=== PATIENT | male | born 1975 | race African-American/Black ===

== ENCOUNTER 2022-08-22 00:29 | Inpatient (IN) | payer OTHER ==
[2022-08-22] MEDS ORDERED: LACTATED RINGERS SOLUTION 1000 ML INFUS.BAG IV ONE ×2 (00:39→01:59)
[2022-08-22] MEDS ORDERED: PIPERACILLIN/TAZOB 3.375 GM 3.375 GM in DEXTROSE 5%-WATER - 50 ML IVPB ONE (00:44)
[2022-08-22] MEDS ORDERED: VANCOMYCIN 1 GM in D5W (PRE-DOCKED) 1,000 MG/250 ML IVPB ONE (00:44)
[2022-08-22] MEDS ORDERED: PIPERACILLIN/TAZOB 3.375 GM 3.375 GM/50 ML BAG IVPB ONE (01:03)
[2022-08-22] MEDS ORDERED: VANCOMYCIN/WATER FOR INJ (PEG) 1,000 MG/200 ML BAG IVPB ONE (01:03)
[2022-08-22 01:08] LABS: VENOUS BASE EXCESS -0.3 mmol/L (-2-2); VENOUS O2 SATURATION 72.5 % (70-80); VENOUS PCO2 46.8 mmHg (38-52); VENOUS PH 7.356 (7.310-7.410)
[2022-08-22 01:10] LABS: BASO % 0.3 % (0-2.0); EOS % 0.1 % (0-4.5); HEMATOCRIT 28.9 % (35.4-49); MCH 28.4 pg (25.7-33.7); MCHC 31.1 g/dl (32.0-35.9); MEAN CELL VOLUME 91.6 fl (80-96); MEAN PLT VOLUME 6.6 fl (7.5-11.1); MONO % 13.4 % (3.8-10.2); NEUT % 78.2 % (42.8-82.8); PLATELET COUNT 342 10^3/uL (134-434); RBC 3.16 M/mm3 (4.00-5.60); RDW 22.3 % (11.9-15.9); WHITE BLOOD COUNT 11.8 K/mm3 (4.0-10.0)
[2022-08-22 01:19] LABS: INR 1.33 (0.83-1.09); PROTHROMBIN TIME (PATIENT) 15.3 SEC (9.7-13.0)
[2022-08-22 01:22] LABS: ACTIVATED PTT 53.9 SECONDS (25.2-36.5)
[2022-08-22 01:31] LABS: CALCIUM 11.2 mg/dL (8.5-10.1)
[2022-08-22 01:32] LABS: BLOOD UREA NITROGEN 71.8 mg/dL (7-18)
[2022-08-22 01:35] LABS: CREATININE 4.8 mg/dL (0.55-1.3)
[2022-08-22 01:37] LABS: BILIRUBIN,TOTAL 0.4 mg/dL (0.2-1)
[2022-08-22 01:57] LABS: LACTIC ACID 2.7 mmol/L (0.4-2.0)
[2022-08-22 03:38] LABS: ANISOCYTOSIS 1+; MACROCYTOSIS 1+; OVALOCYTE 1+
[2022-08-22 06:41] LABS: BASO % 0.5 % (0-2.0); EOS % 0.1 % (0-4.5); HEMATOCRIT 33.1 % (35.4-49); HEMOGLOBIN 11.1 GM/dL (11.7-16.9); LYMPH % 18.9 % (8-40); MCH 30.6 pg (25.7-33.7); MCHC 33.4 g/dl (32.0-35.9); MEAN CELL VOLUME 91.8 fl (80-96); MEAN PLT VOLUME 8.5 fl (7.5-11.1); MONO % 6.3 % (3.8-10.2); NEUT % 74.2 % (42.8-82.8); PLATELET COUNT 187 10^3/uL (134-434); RBC 3.61 M/mm3 (4.00-5.60); RDW 14.2 % (11.9-15.9); WHITE BLOOD COUNT 7.7 K/mm3 (4.0-10.0)
[2022-08-22] MEDS ORDERED: ALBUTEROL SO4 2.5/IPRATROPIUM 0.5 INH SOL 3 ML VIAL.NEB. NEB PRN (07:59)
[2022-08-22] MEDS: ACETAMINOPHEN 325 MG TABLET (FP) PO PRN ×2 (09:27→23:01)
[2022-08-22] MEDS ORDERED: HEPARIN NA (PORCINE) 5,000 UNITS/ML 1ML VIAL ONE ×2 (09:30→15:08)
[2022-08-22] MEDS ORDERED: PIPERACILLIN/TAZOB 2.25 GM 2.25 GM/50 ML BAG IVPB ONE ×2 (09:31→17:17)
[2022-08-22] MEDS: HEPARIN NA (PORCINE) 5,000 UNITS/ML 1ML VIAL SQ SCH ×3 (09:43→23:02)
[2022-08-22] MEDS: PIPERACILLIN/TAZOB 2.25 GM 2.25 GM in DEXTROSE 5%-WATER - 50 ML IVPB SCH ×2 (09:43→17:23)
[2022-08-22] MEDS: LACTATED RINGERS SOLUTION 1,000 ML/1,000 ML INFUS.BAG IV SCH (09:44)
[2022-08-22] MEDS ORDERED: ASCORBIC ACID 500 MG TABLET (FP) ONE (09:45)
[2022-08-22] MEDS: FAMOTIDINE 40 MG/5 ML ORAL SUSPENSION GT SCH ×2 (09:45→23:03)
[2022-08-22] MEDS ORDERED: FAMOTIDINE 20 MG TABLET ONE (09:45)
[2022-08-22] MEDS ORDERED: HEPARIN NA (PORCINE) 5,000 UNITS/ML 1ML VIAL SQ SCH (10:00)
[2022-08-22] MEDS: PSYLLIUM 5.85 GM PACKET GT SCH (10:15)
[2022-08-22] MEDS: VITAMIN B COMP W-C 1 EA TABLET (NEPHRO-VITE) GT SCH (10:15)
[2022-08-22] MEDS: AMANTADINE HCL 100MG/10 ML UNIT DOSE CUPS GT SCH (10:16)
[2022-08-22] MEDS: ASCORBIC ACID 500 MG/5 ML UNIT DOSE CUP GT SCH (10:16)
[2022-08-22] MEDS ORDERED: ERYTHROMYCIN 0.5% OPHTHALMIC OINTMENT 3.5 GM TUBE OU SCH (12:00)
[2022-08-22] MEDS ORDERED: EPOETIN ALFA-EPBX 2,000 UNIT/ML VIAL IVPUSH SCH (12:00)
[2022-08-22] MEDS ORDERED: ERYTHROMYCIN 0.5% OPHTHALMIC OINTMENT 3.5 GM TUBE ONE (12:11)
[2022-08-22] MEDS: SODIUM CHLORIDE 1 GM TABLET GT SCH ×2 (15:20→23:02)
[2022-08-22 16:35] LABS: BASO % 0.4 % (0-2.0); EOS % 0.5 % (0-4.5); HEMATOCRIT 24.1 % (35.4-49); HEMOGLOBIN 7.6 GM/dL (11.7-16.9); LYMPH % 8.3 % (8-40); MCH 28.5 pg (25.7-33.7); MCHC 31.7 g/dl (32.0-35.9); MEAN CELL VOLUME 90.2 fl (80-96); MEAN PLT VOLUME 6.5 fl (7.5-11.1); MONO % 10.9 % (3.8-10.2); NEUT % 79.9 % (42.8-82.8); PLATELET COUNT 291 10^3/uL (134-434); RBC 2.67 M/mm3 (4.00-5.60); RDW 21.6 % (11.9-15.9); WHITE BLOOD COUNT 9.8 K/mm3 (4.0-10.0)
[2022-08-22 16:50] LABS: ALBUMIN 1.8 g/dl (3.4-5.0)
[2022-08-22 16:54] LABS: BILIRUBIN,TOTAL 0.4 mg/dL (0.2-1)
[2022-08-22 16:55] LABS: TOT PROT 7.3 g/dl (6.4-8.2)
[2022-08-22 17:27] LABS: BLOOD UREA NITROGEN 80.9 mg/dL (7-18); CALCIUM 11.3 mg/dL (8.5-10.1); CREATININE 5.1 mg/dL (0.55-1.3)
[2022-08-22] MEDS: OFLOXACIN 0.3% OPHTHALMIC SOLUTION 5 ML BOTTLE OU SCH (17:46)
[2022-08-22] MEDS ORDERED: PATIENT'S OWN MEDICATION (NON-FORMULARY) (Brivaracetam [Briviact] 100 MG Tablet) GT SCH (22:00)
[2022-08-22] MEDS ORDERED: BRIVARACETAM 10 MG/ML GT SCH (22:00)
[2022-08-22] MEDS: ATORVASTATIN CA 40 MG TABLET (FP) GT SCH (23:02)
[2022-08-23] MEDS: PIPERACILLIN/TAZOB 2.25 GM 2.25 GM in DEXTROSE 5%-WATER - 50 ML IVPB SCH ×4 (01:45→19:38)
[2022-08-23] MEDS: HEPARIN NA (PORCINE) 5,000 UNITS/ML 1ML VIAL SQ SCH ×3 (06:40→22:02)
[2022-08-23] MEDS: LEVOTHYROXINE NA 25 MCG TABLET (FP) PO SCH (06:40)
[2022-08-23] MEDS: SODIUM CHLORIDE 1 GM TABLET GT SCH ×3 (06:40→22:02)
[2022-08-23 11:05] LABS: BASO % 0.5 % (0-2.0); EOS % 1.8 % (0-4.5); HEMOGLOBIN 8.2 GM/dL (11.7-16.9); LYMPH % 10.4 % (8-40); MCH 28.5 pg (25.7-33.7); MCHC 31.5 g/dl (32.0-35.9); MEAN CELL VOLUME 90.4 fl (80-96); MEAN PLT VOLUME 7.1 fl (7.5-11.1); MONO % 13.7 % (3.8-10.2); NEUT % 73.6 % (42.8-82.8); PLATELET COUNT 301 10^3/uL (134-434); RBC 2.88 M/mm3 (4.00-5.60); RDW 21.3 % (11.9-15.9); WHITE BLOOD COUNT 8.7 K/mm3 (4.0-10.0)
[2022-08-23 11:24] LABS: BLOOD UREA NITROGEN 99.2 mg/dL (7-18); CALCIUM 11.7 mg/dL (8.5-10.1)
[2022-08-23 11:25] LABS: MAGNESIUM 3.3 mg/dL (1.8-2.4)
[2022-08-23 11:27] LABS: CREATININE 5.9 mg/dL (0.55-1.3); PHOSPHOROUS 6.1 mg/dL (2.5-4.9)
[2022-08-23] MEDS: AMANTADINE HCL 100MG/10 ML UNIT DOSE CUPS GT SCH (12:35)
[2022-08-23] MEDS: FAMOTIDINE 40 MG/5 ML ORAL SUSPENSION GT SCH ×2 (12:35→22:03)
[2022-08-23] MEDS: ASCORBIC ACID 500 MG/5 ML UNIT DOSE CUP GT SCH (12:35)
[2022-08-23] MEDS: LACTATED RINGERS SOLUTION 1,000 ML/1,000 ML INFUS.BAG IV SCH (12:36)
[2022-08-23] MEDS: VITAMIN B COMP W-C 1 EA TABLET (NEPHRO-VITE) GT SCH (12:36)
[2022-08-23] MEDS: PSYLLIUM 5.85 GM PACKET GT SCH (12:36)
[2022-08-23] MEDS ORDERED: VANCOMYCIN 500 MG in DEXTROSE 5%-WATER - 100 ML IVPB SCH ×2 (13:15→13:45)
[2022-08-23] MEDS ORDERED: SODIUM CHLORIDE 250 ML IV PRN (13:58)
[2022-08-23] MEDS ORDERED: EPOETIN ALFA-EPBX 4,000 UNIT/ML VIAL SQ ONE (14:30)
[2022-08-23] MEDS: ACETAMINOPHEN 325 MG TABLET (FP) PO PRN (19:51)
[2022-08-23] MEDS: ATORVASTATIN CA 40 MG TABLET (FP) GT SCH (22:02)
[2022-08-24] MEDS: PIPERACILLIN/TAZOB 2.25 GM 2.25 GM in DEXTROSE 5%-WATER - 50 ML IVPB SCH (01:25)
[2022-08-24] MEDS: ACETAMINOPHEN 325 MG TABLET (FP) PO PRN (01:32)
[2022-08-24] MEDS: SODIUM CHLORIDE 1 GM TABLET GT SCH ×3 (05:15→21:32)
[2022-08-24] MEDS: HEPARIN NA (PORCINE) 5,000 UNITS/ML 1ML VIAL SQ SCH ×3 (05:15→21:32)
[2022-08-24] MEDS: LEVOTHYROXINE NA 25 MCG TABLET (FP) PO SCH (06:02)
[2022-08-24] MEDS ORDERED: MEROPENEM 500 MG in SODIUM CHLORIDE 50 ML IVPB SCH (09:45)
[2022-08-24] MEDS: PSYLLIUM 5.85 GM PACKET GT SCH (12:00)
[2022-08-24] MEDS: VITAMIN B COMP W-C 1 EA TABLET (NEPHRO-VITE) GT SCH (12:00)
[2022-08-24] MEDS: ASCORBIC ACID 500 MG/5 ML UNIT DOSE CUP GT SCH (12:00)
[2022-08-24] MEDS: AMANTADINE HCL 100MG/10 ML UNIT DOSE CUPS GT SCH (12:00)
[2022-08-24] MEDS: FAMOTIDINE 40 MG/5 ML ORAL SUSPENSION GT SCH ×2 (12:00→21:31)
[2022-08-24 12:39] LABS: BASO % 0.5 % (0-2.0); EOS % 2.7 % (0-4.5); HEMATOCRIT 27.3 % (35.4-49); HEMOGLOBIN 8.5 GM/dL (11.7-16.9); LYMPH % 11.5 % (8-40); MCH 28.2 pg (25.7-33.7); MCHC 31.2 g/dl (32.0-35.9); MEAN CELL VOLUME 90.2 fl (80-96); MEAN PLT VOLUME 7.8 fl (7.5-11.1); MONO % 11.8 % (3.8-10.2); NEUT % 73.5 % (42.8-82.8); PLATELET COUNT 208 10^3/uL (134-434); RBC 3.02 M/mm3 (4.00-5.60); RDW 21.7 % (11.9-15.9); WHITE BLOOD COUNT 9.4 K/mm3 (4.0-10.0)
[2022-08-24 13:47] LABS: CALCIUM 10.2 mg/dL (8.5-10.1)
[2022-08-24 13:50] LABS: CREATININE 3.6 mg/dL (0.55-1.3)
[2022-08-24 13:55] LABS: BLOOD UREA NITROGEN 52.5 mg/dL (7-18)
[2022-08-24] MEDS: levETIRAcetam 500 MG/5 ML INJECTION VIAL IVPB SCH (14:27)
[2022-08-24] MEDS: ACETAMINOPHEN 650 MG SUPP.RECT RC PRN (20:00)
[2022-08-24] MEDS: ATORVASTATIN CA 40 MG TABLET (FP) GT SCH (21:32)
[2022-08-24] MEDS: MEROPENEM 500 MG in SODIUM CHLORIDE 50 ML IVPB SCH (23:51)
[2022-08-25] MEDS: HEPARIN NA (PORCINE) 5,000 UNITS/ML 1ML VIAL SQ SCH ×3 (05:11→22:12)
[2022-08-25] MEDS: SODIUM CHLORIDE 1 GM TABLET GT SCH ×3 (05:11→22:12)
[2022-08-25] MEDS: LEVOTHYROXINE NA 25 MCG TABLET (FP) PO SCH (06:18)
[2022-08-25 10:07] LABS: BASO % 0.4 % (0-2.0); EOS % 4.1 % (0-4.5); HEMATOCRIT 26.3 % (35.4-49); HEMOGLOBIN 8.2 GM/dL (11.7-16.9); LYMPH % 11.3 % (8-40); MCH 27.8 pg (25.7-33.7); MCHC 31.1 g/dl (32.0-35.9); MEAN CELL VOLUME 89.6 fl (80-96); MEAN PLT VOLUME 7.1 fl (7.5-11.1); MONO % 9.7 % (3.8-10.2); NEUT % 74.5 % (42.8-82.8); PLATELET COUNT 314 10^3/uL (134-434); RBC 2.93 M/mm3 (4.00-5.60); WHITE BLOOD COUNT 8.6 K/mm3 (4.0-10.0)
[2022-08-25 10:47] LABS: BLOOD UREA NITROGEN 63.8 mg/dL (7-18)
[2022-08-25 10:50] LABS: CREATININE 4.4 mg/dL (0.55-1.3)
[2022-08-25 11:15] LABS: ANISOCYTOSIS 1+; MACROCYTOSIS 1+; OVALOCYTE 1+
[2022-08-25] MEDS: levETIRAcetam 500 MG/5 ML INJECTION VIAL IVPB SCH (11:59)
[2022-08-25] MEDS: AMANTADINE HCL 100MG/10 ML UNIT DOSE CUPS GT SCH (11:59)
[2022-08-25] MEDS: VITAMIN B COMP W-C 1 EA TABLET (NEPHRO-VITE) GT SCH (11:59)
[2022-08-25] MEDS: MEROPENEM 500 MG in SODIUM CHLORIDE 50 ML IVPB SCH ×2 (11:59→23:50)
[2022-08-25] MEDS: ASCORBIC ACID 500 MG/5 ML UNIT DOSE CUP GT SCH (12:00)
[2022-08-25] MEDS: FAMOTIDINE 40 MG/5 ML ORAL SUSPENSION GT SCH ×2 (12:00→22:13)
[2022-08-25] MEDS: PSYLLIUM 5.85 GM PACKET GT SCH (12:00)
[2022-08-25] MEDS ORDERED: SODIUM CHLORIDE 250 ML IV PRN (12:06)
[2022-08-25] MEDS ORDERED: VANCOMYCIN/WATER FOR INJ (PEG) 1,000 MG/200 ML BAG IVPB ONE (17:30)
[2022-08-25] MEDS: ACETAMINOPHEN 650 MG SUPP.RECT RC PRN (18:10)
[2022-08-25] MEDS: ATORVASTATIN CA 40 MG TABLET (FP) GT SCH (22:12)
[2022-08-26] MEDS: LEVOTHYROXINE NA 25 MCG TABLET (FP) PO SCH (06:15)
[2022-08-26] MEDS: SODIUM CHLORIDE 1 GM TABLET GT SCH ×2 (06:15→14:40)
[2022-08-26] MEDS: HEPARIN NA (PORCINE) 5,000 UNITS/ML 1ML VIAL SQ SCH ×3 (06:16→21:33)
[2022-08-26] MEDS ORDERED: EPOETIN ALFA-EPBX 4,000 UNIT/ML VIAL IVPUSH ONE (08:00)
[2022-08-26] MEDS ORDERED: HEPARIN NA (PORCINE) 5,000 UNITS/ML 1ML VIAL IVPUSH ONE (08:00)
[2022-08-26 09:45] LABS: HEMATOCRIT 25.6 % (35.4-49); HEMOGLOBIN 7.9 GM/dL (11.7-16.9); MCH 27.9 pg (25.7-33.7); MCHC 30.8 g/dl (32.0-35.9); MEAN CELL VOLUME 90.4 fl (80-96); MEAN PLT VOLUME 7.2 fl (7.5-11.1); PLATELET COUNT 330 10^3/uL (134-434); RBC 2.83 M/mm3 (4.00-5.60); WHITE BLOOD COUNT 9.9 K/mm3 (4.0-10.0)
[2022-08-26 09:59] LABS: CALCIUM 10.9 mg/dL (8.5-10.1)
[2022-08-26 10:00] LABS: BLOOD UREA NITROGEN 80.9 mg/dL (7-18)
[2022-08-26 10:03] LABS: CREATININE 5.1 mg/dL (0.55-1.3)
[2022-08-26] MEDS: VITAMIN B COMP W-C 1 EA TABLET (NEPHRO-VITE) GT SCH (13:32)
[2022-08-26] MEDS: levETIRAcetam 500 MG/5 ML INJECTION VIAL IVPB SCH (13:32)
[2022-08-26] MEDS: PSYLLIUM 5.85 GM PACKET GT SCH (13:33)
[2022-08-26] MEDS: MEROPENEM 500 MG in SODIUM CHLORIDE 50 ML IVPB SCH (13:33)
[2022-08-26] MEDS: FAMOTIDINE 40 MG/5 ML ORAL SUSPENSION GT SCH ×2 (13:34→21:32)
[2022-08-26] MEDS: ASCORBIC ACID 500 MG/5 ML UNIT DOSE CUP GT SCH (13:34)
[2022-08-26] MEDS ORDERED: ACETAMINOPHEN 1000 MG/100 ML BAG IVPB ONE (14:34)
[2022-08-26] MEDS: AMANTADINE HCL 100MG/10 ML UNIT DOSE CUPS GT SCH (14:39)
[2022-08-26] MEDS ORDERED: SODIUM CHLORIDE 1,000 ML IV STA (16:24)
[2022-08-26] MEDS ORDERED: KETOROLAC TROMETHAMINE 15 MG/ML VIAL IVPUSH ONE (16:25)
[2022-08-26] MEDS: ATORVASTATIN CA 40 MG TABLET (FP) GT SCH (21:33)
[2022-08-27] MEDS: MEROPENEM 500 MG in SODIUM CHLORIDE 50 ML IVPB SCH ×3 (00:22→23:16)
[2022-08-27] MEDS: LEVOTHYROXINE NA 25 MCG TABLET (FP) PO SCH (06:14)
[2022-08-27] MEDS: HEPARIN NA (PORCINE) 5,000 UNITS/ML 1ML VIAL SQ SCH ×3 (06:14→21:36)
[2022-08-27 10:54] LABS: BASO % 0.5 % (0-2.0); EOS % 4.4 % (0-4.5); HEMOGLOBIN 7.7 GM/dL (11.7-16.9); LYMPH % 11.1 % (8-40); MCH 28.2 pg (25.7-33.7); MCHC 30.9 g/dl (32.0-35.9); MEAN CELL VOLUME 91.5 fl (80-96); MEAN PLT VOLUME 7.2 fl (7.5-11.1); PLATELET COUNT 316 10^3/uL (134-434); RBC 2.73 M/mm3 (4.00-5.60)
[2022-08-27 11:17] LABS: CALCIUM 10.9 mg/dL (8.5-10.1)
[2022-08-27 11:18] LABS: ALBUMIN 1.6 g/dl (3.4-5.0); MAGNESIUM 2.4 mg/dL (1.8-2.4)
[2022-08-27 11:21] LABS: CREATININE 3.3 mg/dL (0.55-1.3); PHOSPHOROUS 3.8 mg/dL (2.5-4.9)
[2022-08-27 11:22] LABS: BILIRUBIN,TOTAL 0.4 mg/dL (0.2-1); TOT PROT 6.7 g/dl (6.4-8.2)
[2022-08-27 11:29] LABS: BLOOD UREA NITROGEN 48.4 mg/dL (7-18)
[2022-08-27] MEDS ORDERED: SODIUM CHLORIDE 250 ML IV PRN (11:31)
[2022-08-27] MEDS: levETIRAcetam 500 MG/5 ML INJECTION VIAL IVPB SCH (11:58)
[2022-08-27] MEDS: AMANTADINE HCL 100MG/10 ML UNIT DOSE CUPS GT SCH (11:59)
[2022-08-27] MEDS: FAMOTIDINE 40 MG/5 ML ORAL SUSPENSION GT SCH ×2 (11:59→21:36)
[2022-08-27] MEDS: PSYLLIUM 5.85 GM PACKET GT SCH (11:59)
[2022-08-27] MEDS: VITAMIN B COMP W-C 1 EA TABLET (NEPHRO-VITE) GT SCH (11:59)
[2022-08-27] MEDS: ASCORBIC ACID 500 MG/5 ML UNIT DOSE CUP GT SCH (12:00)
[2022-08-27 12:16] VITALS: BMI 18.0
[2022-08-27] MEDS: ATORVASTATIN CA 40 MG TABLET (FP) GT SCH (21:36)
[2022-08-28] MEDS: LEVOTHYROXINE NA 25 MCG TABLET (FP) PO SCH (06:02)
[2022-08-28] MEDS: HEPARIN NA (PORCINE) 5,000 UNITS/ML 1ML VIAL SQ SCH ×3 (06:03→21:29)
[2022-08-28 07:58] LABS: BASO % 0.5 % (0-2.0); EOS % 4.7 % (0-4.5); LYMPH % 12.3 % (8-40); MCHC 31.9 g/dl (32.0-35.9); MEAN PLT VOLUME 6.6 fl (7.5-11.1); MONO % 10.4 % (3.8-10.2); NEUT % 72.1 % (42.8-82.8); PLATELET COUNT 338 10^3/uL (134-434); RBC 2.75 M/mm3 (4.00-5.60); RDW 21.2 % (11.9-15.9)
[2022-08-28] MEDS ORDERED: HEPARIN NA (PORCINE) 5,000 UNITS/ML 1ML VIAL IVPUSH ONE (08:15)
[2022-08-28] MEDS ORDERED: EPOETIN ALFA-EPBX 4,000 UNIT/ML VIAL IVPUSH ONE (08:15)
[2022-08-28 08:23] LABS: ALBUMIN 1.6 g/dl (3.4-5.0)
[2022-08-28 08:24] LABS: BLOOD UREA NITROGEN 64.2 mg/dL (7-18); CALCIUM 11.5 mg/dL (8.5-10.1); CREATININE 4.1 mg/dL (0.55-1.3); TOT PROT 6.8 g/dl (6.4-8.2)
[2022-08-28 08:26] LABS: BILIRUBIN,TOTAL 0.4 mg/dL (0.2-1)
[2022-08-28] MEDS: AMINO ACIDS/PROTEIN HYDROLYS 30 ML LIQUID.PKT PEG SCH (12:07)
[2022-08-28] MEDS: PSYLLIUM 5.85 GM PACKET GT SCH (12:07)
[2022-08-28] MEDS: levETIRAcetam 500 MG/5 ML INJECTION VIAL IVPB SCH (12:07)
[2022-08-28] MEDS: FAMOTIDINE 40 MG/5 ML ORAL SUSPENSION GT SCH ×2 (12:07→21:32)
[2022-08-28] MEDS: ASCORBIC ACID 500 MG/5 ML UNIT DOSE CUP GT SCH (12:08)
[2022-08-28] MEDS: ZINC SULFATE 220 MG CAPSULE (FP) GT SCH (12:08)
[2022-08-28] MEDS: VITAMIN B COMP W-C 1 EA TABLET (NEPHRO-VITE) GT SCH (12:08)
[2022-08-28] MEDS: AMANTADINE HCL 100MG/10 ML UNIT DOSE CUPS GT SCH (12:09)
[2022-08-28] MEDS: MEROPENEM 500 MG in SODIUM CHLORIDE 50 ML IVPB SCH (13:33)
[2022-08-28] MEDS ORDERED: VANCOMYCIN/WATER FOR INJ (PEG) 1,000 MG/200 ML BAG IVPB ONE (16:29)
[2022-08-28] MEDS: CEFTAZIDIME/AVIBACTAM 0.94 GM in DEXTROSE 5%-WATER - 100 ML IVPB SCH (18:43)
[2022-08-28] MEDS: ACETAMINOPHEN 650 MG SUPP.RECT RC PRN (21:29)
[2022-08-28] MEDS: ATORVASTATIN CA 40 MG TABLET (FP) GT SCH (21:29)
[2022-08-29] MEDS: HEPARIN NA (PORCINE) 5,000 UNITS/ML 1ML VIAL SQ SCH ×2 (06:22→22:03)
[2022-08-29] MEDS: LEVOTHYROXINE NA 25 MCG TABLET (FP) PO SCH (06:22)
[2022-08-29] MEDS: ACETAMINOPHEN 650 MG SUPP.RECT RC PRN (06:29)
[2022-08-29] MEDS: VITAMIN B COMP W-C 1 EA TABLET (NEPHRO-VITE) GT SCH (09:12)
[2022-08-29] MEDS: AMANTADINE HCL 100MG/10 ML UNIT DOSE CUPS GT SCH (09:13)
[2022-08-29] MEDS: FAMOTIDINE 40 MG/5 ML ORAL SUSPENSION GT SCH ×2 (09:13→22:03)
[2022-08-29] MEDS: ZINC SULFATE 220 MG CAPSULE (FP) GT SCH (09:13)
[2022-08-29] MEDS: AMINO ACIDS/PROTEIN HYDROLYS 30 ML LIQUID.PKT PEG SCH (09:13)
[2022-08-29] MEDS: levETIRAcetam 500 MG/5 ML INJECTION VIAL IVPB SCH (09:13)
[2022-08-29] MEDS: PSYLLIUM 5.85 GM PACKET GT SCH (09:14)
[2022-08-29] MEDS: ASCORBIC ACID 500 MG/5 ML UNIT DOSE CUP GT SCH (09:15)
[2022-08-29] MEDS: CEFTAZIDIME/AVIBACTAM 0.94 GM in DEXTROSE 5%-WATER - 100 ML IVPB SCH (11:02)
[2022-08-29] MEDS ORDERED: SODIUM CHLORIDE 250 ML IV PRN (19:28)
[2022-08-29] MEDS: ATORVASTATIN CA 40 MG TABLET (FP) GT SCH (22:03)
[2022-08-30] MEDS: ACETAMINOPHEN 650 MG SUPP.RECT RC PRN (01:33)
[2022-08-30] MEDS: LEVOTHYROXINE NA 25 MCG TABLET (FP) PO SCH (06:32)
[2022-08-30] MEDS: HEPARIN NA (PORCINE) 5,000 UNITS/ML 1ML VIAL SQ SCH ×3 (06:32→22:31)
[2022-08-30] MEDS: ZINC SULFATE 220 MG CAPSULE (FP) GT SCH (09:05)
[2022-08-30] MEDS: PSYLLIUM 5.85 GM PACKET GT SCH (09:06)
[2022-08-30] MEDS: FAMOTIDINE 40 MG/5 ML ORAL SUSPENSION GT SCH ×2 (09:06→22:32)
[2022-08-30] MEDS: VITAMIN B COMP W-C 1 EA TABLET (NEPHRO-VITE) GT SCH (09:06)
[2022-08-30] MEDS: AMINO ACIDS/PROTEIN HYDROLYS 30 ML LIQUID.PKT PEG SCH (09:06)
[2022-08-30] MEDS: levETIRAcetam 500 MG/5 ML INJECTION VIAL IVPB SCH (09:06)
[2022-08-30] MEDS: ASCORBIC ACID 500 MG/5 ML UNIT DOSE CUP GT SCH (09:07)
[2022-08-30] MEDS: AMANTADINE HCL 100MG/10 ML UNIT DOSE CUPS GT SCH (09:07)
[2022-08-30 10:02] LABS: BASO % 0.3 % (0-2.0); EOS % 2.1 % (0-4.5); HEMATOCRIT 30.7 % (35.4-49); HEMOGLOBIN 9.3 GM/dL (11.7-16.9); LYMPH % 7.7 % (8-40); MCH 27.6 pg (25.7-33.7); MCHC 30.2 g/dl (32.0-35.9); MEAN CELL VOLUME 91.5 fl (80-96); MEAN PLT VOLUME 6.9 fl (7.5-11.1); MONO % 6.3 % (3.8-10.2); NEUT % 83.6 % (42.8-82.8); PLATELET COUNT 459 10^3/uL (134-434); RBC 3.36 M/mm3 (4.00-5.60); RDW 21.2 % (11.9-15.9); WHITE BLOOD COUNT 17.4 K/mm3 (4.0-10.0)
[2022-08-30 10:28] LABS: ALBUMIN 1.9 g/dl (3.4-5.0); BLOOD UREA NITROGEN 67.4 mg/dL (7-18); CALCIUM 12.6 mg/dL (8.5-10.1); MAGNESIUM 2.8 mg/dL (1.8-2.4)
[2022-08-30 10:32] LABS: CREATININE 4.1 mg/dL (0.55-1.3); PHOSPHOROUS 4.9 mg/dL (2.5-4.9)
[2022-08-30 10:33] LABS: BILIRUBIN,TOTAL 0.5 mg/dL (0.2-1)
[2022-08-30 11:20] LABS: ANISOCYTOSIS 3+; MACROCYTOSIS 0
[2022-08-30] MEDS: CEFTAZIDIME/AVIBACTAM 0.94 GM in DEXTROSE 5%-WATER - 100 ML IVPB SCH (12:08)
[2022-08-30] MEDS ORDERED: oxyCODONE HCL 10 MG SUSTAINED ACTING TABLET PO SCH ×2 (14:00→22:00)
[2022-08-30] MEDS: oxyCODONE HCL 5 MG TABLET PO SCH (18:05)
[2022-08-30] MEDS ORDERED: EPOETIN ALFA-EPBX 10,000 UNIT/ML VIAL SQ ONE (18:45)
[2022-08-30] MEDS ORDERED: VANCOMYCIN/WATER FOR INJ (PEG) 1,000 MG/200 ML BAG IVPB ONE (19:45)
[2022-08-30] MEDS: ATORVASTATIN CA 40 MG TABLET (FP) GT SCH (22:31)
[2022-08-31] MEDS: oxyCODONE HCL 5 MG TABLET PO SCH ×4 (00:08→18:05)
[2022-08-31] MEDS: LEVOTHYROXINE NA 25 MCG TABLET (FP) PO SCH (06:02)
[2022-08-31] MEDS: HEPARIN NA (PORCINE) 5,000 UNITS/ML 1ML VIAL SQ SCH ×3 (06:02→21:15)
[2022-08-31] MEDS: CEFTAZIDIME/AVIBACTAM 0.94 GM in DEXTROSE 5%-WATER - 100 ML IVPB SCH (10:01)
[2022-08-31] MEDS: AMINO ACIDS/PROTEIN HYDROLYS 30 ML LIQUID.PKT PEG SCH (10:01)
[2022-08-31] MEDS: levETIRAcetam 500 MG/5 ML INJECTION VIAL IVPB SCH (10:01)
[2022-08-31] MEDS: ZINC SULFATE 220 MG CAPSULE (FP) GT SCH (10:02)
[2022-08-31] MEDS: VITAMIN B COMP W-C 1 EA TABLET (NEPHRO-VITE) GT SCH (10:02)
[2022-08-31] MEDS: FAMOTIDINE 40 MG/5 ML ORAL SUSPENSION GT SCH ×2 (10:02→21:15)
[2022-08-31] MEDS: AMANTADINE HCL 100MG/10 ML UNIT DOSE CUPS GT SCH (10:03)
[2022-08-31] MEDS: PSYLLIUM 5.85 GM PACKET GT SCH (10:03)
[2022-08-31] MEDS: ASCORBIC ACID 500 MG/5 ML UNIT DOSE CUP GT SCH (10:04)
[2022-08-31 10:20] LABS: BASO % 0.3 % (0-2.0); EOS % 2.8 % (0-4.5); HEMATOCRIT 27.4 % (35.4-49); HEMOGLOBIN 8.4 GM/dL (11.7-16.9); LYMPH % 10.1 % (8-40); MCH 28.5 pg (25.7-33.7); MCHC 30.8 g/dl (32.0-35.9); MEAN CELL VOLUME 92.7 fl (80-96); MEAN PLT VOLUME 7.6 fl (7.5-11.1); NEUT % 76.8 % (42.8-82.8); PLATELET COUNT 363 10^3/uL (134-434); RBC 2.95 M/mm3 (4.00-5.60); RDW 21.9 % (11.9-15.9); WHITE BLOOD COUNT 13.4 K/mm3 (4.0-10.0)
[2022-08-31 10:37] LABS: CALCIUM 11.6 mg/dL (8.5-10.1)
[2022-08-31 10:38] LABS: ALBUMIN 1.8 g/dl (3.4-5.0); BLOOD UREA NITROGEN 49.5 mg/dL (7-18); MAGNESIUM 2.6 mg/dL (1.8-2.4)
[2022-08-31 10:41] LABS: PHOSPHOROUS 4.4 mg/dL (2.5-4.9)
[2022-08-31 10:43] LABS: BILIRUBIN,TOTAL 0.4 mg/dL (0.2-1); TOT PROT 7.4 g/dl (6.4-8.2)
[2022-08-31 10:46] LABS: CREATININE 3.2 mg/dL (0.55-1.3)
[2022-08-31] MEDS: ACETAMINOPHEN 650 MG SUPP.RECT RC PRN (21:14)
[2022-08-31] MEDS: ATORVASTATIN CA 40 MG TABLET (FP) GT SCH (21:15)
[2022-09-01] MEDS: oxyCODONE HCL 5 MG TABLET PO SCH ×4 (01:54→18:44)
[2022-09-01] MEDS: LEVOTHYROXINE NA 25 MCG TABLET (FP) PO SCH (06:34)
[2022-09-01] MEDS: HEPARIN NA (PORCINE) 5,000 UNITS/ML 1ML VIAL SQ SCH ×3 (06:34→21:06)
[2022-09-01 09:26] LABS: BASO % 0.4 % (0-2.0); EOS % 3.4 % (0-4.5); HEMATOCRIT 27.3 % (35.4-49); HEMOGLOBIN 8.2 GM/dL (11.7-16.9); MCH 27.8 pg (25.7-33.7); MCHC 30.1 g/dl (32.0-35.9); MEAN CELL VOLUME 92.3 fl (80-96); MEAN PLT VOLUME 6.9 fl (7.5-11.1); MONO % 9.4 % (3.8-10.2); NEUT % 76.8 % (42.8-82.8); PLATELET COUNT 388 10^3/uL (134-434); RBC 2.95 M/mm3 (4.00-5.60); RDW 21.9 % (11.9-15.9); WHITE BLOOD COUNT 12.1 K/mm3 (4.0-10.0)
[2022-09-01 10:35] LABS: CALCIUM 12.3 mg/dL (8.5-10.1)
[2022-09-01 10:36] LABS: ALBUMIN 1.8 g/dl (3.4-5.0); BLOOD UREA NITROGEN 70.1 mg/dL (7-18); MAGNESIUM 2.8 mg/dL (1.8-2.4)
[2022-09-01 10:39] LABS: CREATININE 4.3 mg/dL (0.55-1.3); PHOSPHOROUS 5.7 mg/dL (2.5-4.9)
[2022-09-01 10:41] LABS: BILIRUBIN,TOTAL 0.4 mg/dL (0.2-1); TOT PROT 7.3 g/dl (6.4-8.2)
[2022-09-01] MEDS: AMINO ACIDS/PROTEIN HYDROLYS 30 ML LIQUID.PKT PEG SCH (10:57)
[2022-09-01] MEDS: PSYLLIUM 5.85 GM PACKET GT SCH (10:57)
[2022-09-01] MEDS: levETIRAcetam 500 MG/5 ML INJECTION VIAL IVPB SCH (10:57)
[2022-09-01] MEDS: ZINC SULFATE 220 MG CAPSULE (FP) GT SCH (10:57)
[2022-09-01] MEDS: AMANTADINE HCL 100MG/10 ML UNIT DOSE CUPS GT SCH (10:58)
[2022-09-01] MEDS: FAMOTIDINE 40 MG/5 ML ORAL SUSPENSION GT SCH ×2 (10:58→21:07)
[2022-09-01] MEDS: VITAMIN B COMP W-C 1 EA TABLET (NEPHRO-VITE) GT SCH (10:59)
[2022-09-01] MEDS: ASCORBIC ACID 500 MG/5 ML UNIT DOSE CUP GT SCH (10:59)
[2022-09-01] MEDS: CEFTAZIDIME/AVIBACTAM 0.94 GM in DEXTROSE 5%-WATER - 100 ML IVPB SCH (13:15)
[2022-09-01] MEDS ORDERED: EPOETIN ALFA-EPBX 10,000 UNIT/ML VIAL IVPUSH ONE (15:45)
[2022-09-01] MEDS: ATORVASTATIN CA 40 MG TABLET (FP) GT SCH (21:06)
[2022-09-02] MEDS: oxyCODONE HCL 5 MG TABLET PO SCH ×5 (00:31→23:04)
[2022-09-02] MEDS: HEPARIN NA (PORCINE) 5,000 UNITS/ML 1ML VIAL SQ SCH ×3 (05:45→21:51)
[2022-09-02] MEDS: LEVOTHYROXINE NA 25 MCG TABLET (FP) PO SCH (06:20)
[2022-09-02 09:00] LABS: BASO % 0.3 % (0-2.0); EOS % 2.6 % (0-4.5); HEMATOCRIT 28.1 % (35.4-49); HEMOGLOBIN 8.7 GM/dL (11.7-16.9); LYMPH % 10.5 % (8-40); MCH 28.5 pg (25.7-33.7); MCHC 30.9 g/dl (32.0-35.9); MEAN CELL VOLUME 92.2 fl (80-96); MEAN PLT VOLUME 6.6 fl (7.5-11.1); NEUT % 76.6 % (42.8-82.8); PLATELET COUNT 407 10^3/uL (134-434); RBC 3.04 M/mm3 (4.00-5.60); WHITE BLOOD COUNT 12.5 K/mm3 (4.0-10.0)
[2022-09-02] MEDS: PSYLLIUM 5.85 GM PACKET GT SCH (09:03)
[2022-09-02] MEDS: AMINO ACIDS/PROTEIN HYDROLYS 30 ML LIQUID.PKT PEG SCH (09:03)
[2022-09-02] MEDS: ZINC SULFATE 220 MG CAPSULE (FP) GT SCH (09:03)
[2022-09-02] MEDS: levETIRAcetam 500 MG/5 ML INJECTION VIAL IVPB SCH ×2 (09:03→10:31)
[2022-09-02] MEDS: VITAMIN B COMP W-C 1 EA TABLET (NEPHRO-VITE) GT SCH (09:03)
[2022-09-02] MEDS: ASCORBIC ACID 500 MG/5 ML UNIT DOSE CUP GT SCH (09:06)
[2022-09-02] MEDS: FAMOTIDINE 40 MG/5 ML ORAL SUSPENSION GT SCH ×2 (09:06→21:51)
[2022-09-02] MEDS: AMANTADINE HCL 100MG/10 ML UNIT DOSE CUPS GT SCH (09:06)
[2022-09-02 09:27] LABS: ALBUMIN 1.9 g/dl (3.4-5.0); CALCIUM 11.3 mg/dL (8.5-10.1)
[2022-09-02 09:28] LABS: BLOOD UREA NITROGEN 49.1 mg/dL (7-18); MAGNESIUM 2.5 mg/dL (1.8-2.4)
[2022-09-02 09:30] LABS: CREATININE 3.2 mg/dL (0.55-1.3)
[2022-09-02 09:31] LABS: PHOSPHOROUS 4.6 mg/dL (2.5-4.9)
[2022-09-02 09:32] LABS: BILIRUBIN,TOTAL 0.5 mg/dL (0.2-1); TOT PROT 8.2 g/dl (6.4-8.2)
[2022-09-02] MEDS ORDERED: levETIRAcetam 500 MG/5 ML ORAL SOLUTION (UNIT-DOSE CUPS) PO SCH (10:30)
[2022-09-02] MEDS: LINEZOLID 100 MG/5 ML BTL (RESTRICTED TO ID) GT SCH ×2 (12:24→22:43)
[2022-09-02] MEDS ORDERED: VANCOMYCIN/WATER FOR INJ (PEG) 1,000 MG/200 ML BAG IVPB SCH (14:00)
[2022-09-02] MEDS: CEFTAZIDIME/AVIBACTAM 0.94 GM in DEXTROSE 5%-WATER - 100 ML IVPB SCH (15:06)
[2022-09-02] MEDS ORDERED: SODIUM CHLORIDE 250 ML IV PRN (17:40)
[2022-09-02] MEDS: ATORVASTATIN CA 40 MG TABLET (FP) GT SCH (21:51)
[2022-09-03] MEDS: oxyCODONE HCL 5 MG TABLET PO SCH ×3 (06:37→17:20)
[2022-09-03] MEDS: HEPARIN NA (PORCINE) 5,000 UNITS/ML 1ML VIAL SQ SCH ×3 (06:37→22:49)
[2022-09-03] MEDS: LEVOTHYROXINE NA 25 MCG TABLET (FP) PO SCH (06:38)
[2022-09-03] MEDS: levETIRAcetam 500 MG/5 ML ORAL SOLUTION (UNIT-DOSE CUPS) GT SCH (10:20)
[2022-09-03] MEDS: ZINC SULFATE 220 MG CAPSULE (FP) GT SCH (10:20)
[2022-09-03] MEDS: AMINO ACIDS/PROTEIN HYDROLYS 30 ML LIQUID.PKT PEG SCH (10:20)
[2022-09-03] MEDS: VITAMIN B COMP W-C 1 EA TABLET (NEPHRO-VITE) GT SCH (10:20)
[2022-09-03] MEDS: PSYLLIUM 5.85 GM PACKET GT SCH (10:21)
[2022-09-03] MEDS: FAMOTIDINE 40 MG/5 ML ORAL SUSPENSION GT SCH ×2 (10:21→22:49)
[2022-09-03] MEDS: AMANTADINE HCL 100MG/10 ML UNIT DOSE CUPS GT SCH (10:21)
[2022-09-03] MEDS: LINEZOLID 100 MG/5 ML BTL (RESTRICTED TO ID) GT SCH ×2 (10:22→22:49)
[2022-09-03 11:23] LABS: BASO % 0.3 % (0-2.0); EOS % 2.3 % (0-4.5); HEMATOCRIT 28.7 % (35.4-49); HEMOGLOBIN 8.8 GM/dL (11.7-16.9); MCH 28.8 pg (25.7-33.7); MCHC 30.8 g/dl (32.0-35.9); MEAN CELL VOLUME 93.5 fl (80-96); MEAN PLT VOLUME 6.7 fl (7.5-11.1); MONO % 9.8 % (3.8-10.2); NEUT % 77.6 % (42.8-82.8); PLATELET COUNT 398 10^3/uL (134-434); RBC 3.07 M/mm3 (4.00-5.60); RDW 22.4 % (11.9-15.9); WHITE BLOOD COUNT 14.3 K/mm3 (4.0-10.0)
[2022-09-03] MEDS: CEFTAZIDIME/AVIBACTAM 0.94 GM in DEXTROSE 5%-WATER - 100 ML IVPB SCH (11:51)
[2022-09-03] MEDS: ASCORBIC ACID 500 MG/5 ML UNIT DOSE CUP GT SCH (11:51)
[2022-09-03 11:55] LABS: ALBUMIN 1.9 g/dl (3.4-5.0)
[2022-09-03 11:56] LABS: CALCIUM 12.3 mg/dL (8.5-10.1)
[2022-09-03 11:57] LABS: MAGNESIUM 2.9 mg/dL (1.8-2.4)
[2022-09-03 11:59] LABS: CREATININE 4.4 mg/dL (0.55-1.3)
[2022-09-03 12:00] LABS: BILIRUBIN,TOTAL 0.6 mg/dL (0.2-1)
[2022-09-03 12:01] LABS: TOT PROT 8.1 g/dl (6.4-8.2)
[2022-09-03 12:05] LABS: BLOOD UREA NITROGEN 78.2 mg/dL (7-18); PHOSPHOROUS 5.7 mg/dL (2.5-4.9)
[2022-09-03 12:50] LABS: ANISOCYTOSIS 2+
[2022-09-03] MEDS: ALBUTEROL SO4 2.5/IPRATROPIUM 0.5 INH SOL 3 ML VIAL.NEB. NEB SCH ×2 (15:03→20:30)
[2022-09-03] MEDS: ATORVASTATIN CA 40 MG TABLET (FP) GT SCH (22:49)
[2022-09-04] MEDS: oxyCODONE HCL 5 MG TABLET PO SCH ×3 (00:56→12:46)
[2022-09-04] MEDS: HEPARIN NA (PORCINE) 5,000 UNITS/ML 1ML VIAL SQ SCH ×2 (05:58→13:23)
[2022-09-04] MEDS: LEVOTHYROXINE NA 25 MCG TABLET (FP) PO SCH (05:59)
[2022-09-04] MEDS ORDERED: EPOETIN ALFA-EPBX 10,000 UNIT/ML VIAL SQ ONE (08:00)
[2022-09-04] MEDS: ALBUTEROL SO4 2.5/IPRATROPIUM 0.5 INH SOL 3 ML VIAL.NEB. NEB SCH ×2 (08:08→11:43)
[2022-09-04 08:54] LABS: BASO % 0.5 % (0-2.0); EOS % 2.5 % (0-4.5); HEMATOCRIT 24.7 % (35.4-49); HEMOGLOBIN 7.4 GM/dL (11.7-16.9); LYMPH % 7.2 % (8-40); MCH 28.1 pg (25.7-33.7); MEAN CELL VOLUME 93.5 fl (80-96); MEAN PLT VOLUME 7.3 fl (7.5-11.1); NEUT % 81.8 % (42.8-82.8); PLATELET COUNT 413 10^3/uL (134-434); RBC 2.65 M/mm3 (4.00-5.60); RDW 22.4 % (11.9-15.9); WHITE BLOOD COUNT 16.6 K/mm3 (4.0-10.0)
[2022-09-04 09:16] LABS: ALBUMIN 1.8 g/dl (3.4-5.0)
[2022-09-04 09:17] LABS: BLOOD UREA NITROGEN 96.4 mg/dL (7-18); MAGNESIUM 3.2 mg/dL (1.8-2.4)
[2022-09-04 09:20] LABS: CREATININE 5.4 mg/dL (0.55-1.3); PHOSPHOROUS 6.6 mg/dL (2.5-4.9)
[2022-09-04 09:21] LABS: BILIRUBIN,TOTAL 0.4 mg/dL (0.2-1); TOT PROT 7.7 g/dl (6.4-8.2)
[2022-09-04 11:19] VITALS: TEMP 98.2
[2022-09-04] MEDS: CEFTAZIDIME/AVIBACTAM 0.94 GM in DEXTROSE 5%-WATER - 100 ML IVPB SCH (11:28)
[2022-09-04] MEDS: ZINC SULFATE 220 MG CAPSULE (FP) GT SCH (11:29)
[2022-09-04] MEDS: VITAMIN B COMP W-C 1 EA TABLET (NEPHRO-VITE) GT SCH (11:29)
[2022-09-04] MEDS: ASCORBIC ACID 500 MG/5 ML UNIT DOSE CUP GT SCH (11:30)
[2022-09-04] MEDS: FAMOTIDINE 40 MG/5 ML ORAL SUSPENSION GT SCH (11:30)
[2022-09-04] MEDS: levETIRAcetam 500 MG/5 ML ORAL SOLUTION (UNIT-DOSE CUPS) GT SCH (11:30)
[2022-09-04] MEDS: AMINO ACIDS/PROTEIN HYDROLYS 30 ML LIQUID.PKT PEG SCH (11:30)
[2022-09-04] MEDS: PSYLLIUM 5.85 GM PACKET GT SCH (11:30)
[2022-09-04] MEDS: AMANTADINE HCL 100MG/10 ML UNIT DOSE CUPS GT SCH (11:30)
[2022-09-04] MEDS: LINEZOLID 100 MG/5 ML BTL (RESTRICTED TO ID) GT SCH (11:31)
[2022-09-04 18:49] VITALS: BP 123/69; PULSE 120; RESP 34
== END 2022-09-04 13:45 | DRG 870 ==
LOC: JER 00:29 → JERBED 02:22 → J5S 21:59
PROVIDERS: ADMIT Internal Medicine; ATTEND Internal Medicine
PROC: 5A1955Z Respiratory Ventilation, Greater than 96 Consecutive Hours (ICD-10-PCS; principal; 2022-08-22)
PROC: 5A1D70Z Performance of Urinary Filtration, Intermittent, Less than 6 Hours Per Day (ICD-10-PCS; 2022-08-23)
PROC: 5A1D70Z Performance of Urinary Filtration, Intermittent, Less than 6 Hours Per Day (ICD-10-PCS; 2022-08-26)
PROC: 5A1D70Z Performance of Urinary Filtration, Intermittent, Less than 6 Hours Per Day (ICD-10-PCS; 2022-08-28)
PROC: 5A1D70Z Performance of Urinary Filtration, Intermittent, Less than 6 Hours Per Day (ICD-10-PCS; 2022-08-30)
PROC: 5A1D70Z Performance of Urinary Filtration, Intermittent, Less than 6 Hours Per Day (ICD-10-PCS; 2022-09-01)
PROC: 5A1D70Z Performance of Urinary Filtration, Intermittent, Less than 6 Hours Per Day (ICD-10-PCS; 2022-09-04)
DX: A41.89 Other specified sepsis (principal); E43 Unspecified severe protein-calorie malnutrition; L89.154 Pressure ulcer of sacral region, stage 4; L89.213 Pressure ulcer of right hip, stage 3; L89.893 Pressure ulcer of other site, stage 3; R65.21 Severe sepsis with septic shock; J15.1 Pneumonia due to Pseudomonas; N18.6 End stage renal disease; G82.50 Quadriplegia, unspecified; Z68.1 Body mass index [BMI] 19.9 or less, adult; N39.0 Urinary tract infection, site not specified; I12.0 Hypertensive chronic kidney disease with stage 5 chronic kidney disease or end stage renal disease; J96.11 Chronic respiratory failure with hypoxia; J95.851 Ventilator associated pneumonia; R64 Cachexia; E03.9 Hypothyroidism, unspecified; F03.90 Unspecified dementia, unspecified severity, without behavioral disturbance, psychotic disturbance, mood disturbance, and anxiety; G40.909 Epilepsy, unspecified, not intractable, without status epilepticus; E83.52 Hypercalcemia; R13.10 Dysphagia, unspecified; R00.0 Tachycardia, unspecified; E78.5 Hyperlipidemia, unspecified; R50.9 Fever, unspecified; Z93.0 Tracheostomy status; Z93.1 Gastrostomy status; B96.20 Unspecified Escherichia coli [E. coli] as the cause of diseases classified elsewhere; Z99.2 Dependence on renal dialysis; Z74.01 Bed confinement status
CPT/HCPCS: 0241U-QW; 36415; 71045-TC-FY; 74177-TC; 80048; 80053; 82310; 82550; 82803; 83605; 83735; 83970; 84100; 84155; 84165; 84484; 85025; 85027; 85610; 85730; 86803; 86850; 86900; 86901; 87040; 87070; 87086; 87184; 87186; 87205; 87340; 93005; 93010; 93306-TC; 94002; 94640; 99291; C9803-CS; G0480; J1644; J2020; Q5106; Q9967; U0003; U0005